=== PATIENT | male | born 1985 | race Two or more races ===

== ENCOUNTER → 2023-09-26 11:55 | Emergency (ER) | payer MEDICAID ==
[~2023-09-26] VITALS: Ht 160 cm; Wt 75.4 kg
[~2023-09-26 11:55] MED LIST: IBUP-1454 PO
[2023-09-26 15:11] VITALS: BP 134/83; PULSE 70; RESP 16; TEMP 97.9; O2SAT 96
== END | disposition home or self-care (01) ==
LOC: ER 11:55
DX: M54.2 Cervicalgia (principal); V49.9XXA Car occupant (driver) (passenger) injured in unspecified traffic accident, initial encounter; Y93.89 Activity, other specified; Y92.488 Other paved roadways as the place of occurrence of the external cause; Y99.8 Other external cause status
CPT/HCPCS: 72040

== ENCOUNTER 2024-10-27 14:14 | Emergency (ER) | payer MEDICAID ==
[~2024-10-27] VITALS: Ht 162.6 cm; Wt 72.4 kg
--- NOTE | 2024-10-27 16:17 | ED.PDOC ---
Musculoskeletal HPI Comments A 39 year-old male presents to the ED with a chief complaint of lower extremity to the right foot great toenail as of X2 weeks ago. Patient reports having an ingrown toe nail that needs care. Patient has no further complaints at this time and otherwise denies fever, chills, foot pain, swelling, or bleeding at the site. 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 Information Source: Patient Mode of Arrival: Ambulatory Location: Right Extremity Location: Great Toe Timing: Weeks Prehospital treatment: None Severity: Moderate Able to Move Extremity: Yes Bear Weight: Limited Pain: Moderate Associated signs and symptoms: Other (Right Great Toe ) Past Medical History PAST MEDICAL HISTORY: Denies Surgical History: Denies all surgeries Family History Family History: Reviewed,noncontributory to illness, No family hx of Cancer, No family hx of DM, No family hx of Heart nina, No family hx of HTN, No family hx ofKidney nina, No family hx of Liver nina, No family hx of Lung nina, No family hx of Stroke Social History Smoker: Non-Smoker Alcohol: Denies ETOH Use Drugs: Denies Drug Use Lives In: Home Constitutional: denies: chills, diaphoresis, fatigue, fever, malaise, sweats, weakness, others EENTM: denies: blurred vision, double vision, ear bleeding, ear discharge, ear drainage, ear pain, ear ringing, eye pain, eye redness, hearing loss, mouth pain, mouth swelling, nasal discharge, nose bleeding, nose congestion, nose pain, photophobia, tearing, throat pain, throat swelling, voice changes, others Respiratory: denies: cough, hemoptysis, orthopnea, SOB at rest, shortness of breath, SOB with excertion, stridor, wheezing, others Cardiovascular: denies: chest pain, dizzy spells, diaphoresis, Dyspnea on exertion, edema, irregular heart beat, left arm pain, lightheadedness, palpitations, PND, syncope, others Gastrointestinal: denies: abdomen distended, abdominal pain, blood streaked bowels, constipated, diarrhea, dysphagia, difficulty swallowing, hematemesis, melena, nausea, poor appetite, poor fluid intake, rectal bleeding, rectal pain, vomiting, others Genitourinary: denies: burning, dysuria, flank pain, frequency, hematuria, incontinence, penile discharge, penile sore, pain, testicle pain, testicle swelling, urgency, others Neurological: denies: dizziness, fainting, headache, left sided numbness, left sided weakness, numbness, paresthesia, pre-existing deficit, right sided numbness, right sided weakness, seizure, speech problems, tingling, tremors, weakness, others Musculoskeletal: denies: back pain, gout, joint pain, joint swelling, muscle pain, muscle stiffness, neck pain, others Integumetry: reports: others (Ingrown Toenail of Right Great Toe ); denies: bruises, change in color, change in hair/nails, dryness, laceration, lesions, lumps, rash, wounds Allergic/Immunocompromised: denies: Difficulty Healing, Frequent Infections, Hives, Itching, others Hematologic/Lymphatic: denies: anemia, blood clots, easy bleeding, easy bruising, swollen glands, others Endocrine: denies: excessive hunger, excessive sweating, excessive thirst, excessive urination, flushing, intolerance to cold, intolerance to heat, unexplained weight gain, unexplained weight loss, others Psychiatric: denies: anxiety, bipolar disorder, depression, hopeless, panic disorder, schizophrenia, sleepless, suicidal, others All Other Systems: Reviewed and Negative Physical Exam General Appearance: Mild Distress, No Apparent Distress, Normal HEENT: Normal ENT Inspection, PERRL/EOMI, Pharynx Normal, TMs Normal Neck: Full Range of Motion, Non-Tender, Normal, Normal Inspection Respiratory: Chest Non-Tender, Lungs Clear, No Accessory Muscle Use, No Respiratory Distress, Normal Breath Sounds Cardiovascular: No Edema, No JVD, No Murmur, No Gallop, Normal Peripheral Pulses, Regular Rate/Rhythm Breast Exam: Deferred Gastrointestinal: No Organomegaly, Non Tender, No Pulsatile Mass, Normal Bowel Sounds, Soft Genitalia: Deferred Pelvic: Deferred Rectal: Deferred Extremities: No calf tenderness, Normal capillary refill, Normal inspection, Normal range of motion, Non-tender, No pedal edema Musculoskeletal : Location: Right Extremity Location: Great Toe Apperance: Swelling, Limited ROM, Tenderness: Moderate, Other (Infected ingrown toenail) Neurologic: Alert, 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 Was a procedure done?: Yes Sedation Sedation?: No Nail Removal Nail Removal Location: 1st Toe nail Nail Removal Anesthetic: Lidocaine Wound Complexity: Partial Informed Consent: Yes Other Procedure Informed consent obtained: Yes Risks, benefits, and alternati: Yes Differential Diagnosis EXT Differential Diagnosis: Cellulitis, Laceration, Other (Ingrown Toenail ) X-Ray, Labs, Meds, VS Vital Signs Date Time Temp Pulse Resp B/P (MAP) Pulse Ox O2 Delivery O2 Flow Rate FiO2 10/27/24 14:23 98.4 86 18 130/84 (99) 98 98.4 X-Ray, Labs, Meds, VS Comment Patient came in to the emergency department with infected ingrown toenail Procedure done to remove the nail and cleaned up nailbed and the infection The toenail is cleaned up Neosporin applied to gauze is done Patient will follow up with his regular doctor or come back to the ER in three days 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 Time of 1ST Reevaluation: 17:25 Reevaluation 1ST: Improved Time of 2ND Reevaluation: 17:54 Reevaluation 2ND: Improved Consultation: PCP Patient Education/Counseling: Diagnosis, Treatment, Prognosis, Need For Follow Up Family Education/Counseling: Diagnosis, Treatment, Prognosis, Need For Follow Up, No Family Present Medical Screening: No EMC Exist At This Time Departure 1 Departure Time of Disposition: 17:40 Impression: Primary Impression: Ingrown nail of great toe of right foot Disposition: 01 HOME / SELF CARE / HOMELESS Condition: Stable Additional Instructions: The toenail clean and dry follow up your doctor in three days or come to the emergency department for 1st evaluation e-Prescriptions Naproxen (Naproxen) 375 Mg Tab 375 MG PO TID for 10 Days, #30 TAB Prov: BONY HERNANDEZ MD 10/27/24 Cefdinir (Cefdinir) 300 Mg Cap 300 MG PO BID for 7 Days, #14 CAP Prov: BONY HERNANDEZ MD 10/27/24 Discharged With: Self Critical Care Note Critical Care Time?: No Stability Stability form required: No Heart Score Heart Score: Heart Score Response (Comments) Value History N/A 0 EKG N/A 0 Age <45 0 Risk Factors No known risk factors 0 Troponin N/A 0 Total 0 I personally scribed for BONY HERNANDEZ MD ([email or web address]) on 10/27/24 at 16:17. Electronically submitted by Karo Mcdaniel ([employer]). I personally scribed for BONY HERNANDEZ MD ([email or web address]) on 10/27/24 at 16:20. Electronically submitted by Karo Mcdaniel ([employer]). I personally scribed for BONY HERNANDEZ MD ([email or web address]) on 10/27/24 at 16:21. Electronically submitted by Karo Mcdaniel ([employer]). I personally scribed for BONY HERNANDEZ MD ([email or web address]) on 10/27/24 at 17:19. Electronically submitted by Karo Mcdaniel ([employer]). I personally scribed for BONY HERNANDEZ MD ([email or web address]) on 10/27/24 at 17:26. Electronically submitted by Karo Mcdaniel ([employer]). BONY HERNANDEZ MD Oct 27, 2024 16:17
[2024-10-27] MEDS: LIDOCAINE 2%HCL (LOCAL ANESTH.) INJ 20ML MDV ID ONE (17:33)
[2024-10-27] MEDS ORDERED: CEFD300C2 PO (17:56)
[2024-10-27] MEDS ORDERED: NAPR-957 PO (17:56)
[2024-10-27] MEDS: BACITRACIN TOP OINT 1 UD PKG TOP ONE (18:01)
[2024-10-27 19:22] VITALS: BP 124/90; PULSE 65; RESP 18; TEMP 98; O2SAT 97
== END 2024-10-27 19:25 | disposition home or self-care (01) ==
LOC: ER 14:14
DX: L60.0 Ingrowing nail (principal)
CPT/HCPCS: 11730

== ENCOUNTER 2024-10-30 08:23 | Emergency (ER) | payer MEDICAID ==
[~2024-10-30] VITALS: Ht 162.6 cm; Wt 73.6 kg
[~2024-10-30 08:23] MED LIST changes: +CEFD300C2 PO; +NAPR-957 PO
--- NOTE | 2024-10-30 08:59 | ED.PDOC ---
History of Present Illness HPI Comments 39 year old male presents to the ED for the c/c of a Wound Check to the Right Big Toe. Pt states that he was previously seen here at [facility] this past Tuesday for a toe nail removal, and was advised to return for a further evaluation. Wound is noted to have No gross abnormality, No surrounding erythema or swell ing, No Drainage noted, Nuero vascular sensitivity intact. Pt notes of Tenderness upon Palpitation. Denies any Fevers, Discharge, and is able to ambulate without any assisted devices. Chief Complaint: Wound Check Time Seen by MD: 08:51 Primary Care Provider: NONE Reviewed Notes: Nurses Notes, Medications, Allergies Allergies: Coded Allergies: NO KNOWN ALLERGIES (Unverified , 09/26/23) Home Meds Active Scripts Naproxen (Naproxen) 375 Mg Tab, 375 MG PO TID for 10 Days, #30 TAB Prov:BONY HERNANDEZ MD 10/27/24 Cefdinir (Cefdinir) 300 Mg Cap, 300 MG PO BID for 7 Days, #14 CAP Prov:BONY HERNANDEZ MD 10/27/24 Ibuprofen (Ibuprofen) 600 Mg Tab, 1 TAB PO TIDPRN PRN for 10 Days, #30 TAB 0 Refills Prov:EVELYN LINO NP 09/26/23 Information Source: Patient Mode of Arrival: Ambulatory Severity: Mild Timing: Days Duration: Since onset, Days Prehospital treatment: None Past Medical History PAST MEDICAL HISTORY: Denies Surgical History: Denies all surgeries Family History Family History: Reviewed,noncontributory to illness, No family hx of Cancer, No family hx of DM, No family hx of Heart nina, No family hx of HTN, No family hx o fKidney nina, No family hx of Liver nina, No family hx of Lung nina, No family hx of Stroke Social History Smoker: Non-Smoker Alcohol: Denies ETOH Use Drugs: Denies Drug Use Lives In: Home Constitutional: denies: chills, diaphoresis, fatigue, fever, malaise, sweats, weakness, others EENTM: denies: blurred vision, double vision, ear bleeding, ear discharge, ear drainage, ear pain, ear ringing, eye pain, eye redness, hearing loss, mouth pain, mouth swelling, nasal discharge, nose bleeding, nose congestion, nose pain, photophobia, tearing, throat pain, throat swelling, voice changes, others Respiratory: denies: cough, hemoptysis, orthopnea, SOB at rest, shortness of breath, SOB with excertion, stridor, wheezing, others Cardiovascular: denies: chest pain, dizzy spells, diaphoresis, Dyspnea on exertion, edema, irregular heart beat, left arm pain, lightheadedness, palpitations, PND, syncope, others Gastrointestinal: denies: abdomen distended, abdominal pain, blood streaked bowels, constipated, diarrhea, dysphagia, difficulty swallowing, hematemesis, melena, nausea, poor appetite, poor fluid intake, rectal bleeding, rectal pain, vomiting, others Genitourinary: denies: burning, dysuria, flank pain, frequency, hematuria, incontinence, penile discharge, penile sore, pain, testicle pain, testicle swelling, urgency, others Neurological: denies: dizziness, fainting, headache, left sided numbness, left sided weakness, numbness, paresthesia, pre-existing deficit, right sided numbness, right sided weakness, seizure, speech problems, tingling, tremors, weakness, others Musculoskeletal: reports: others (Right Big Toe Pain); denies: back pain, gout, joint pain, joint swelling, muscle pain, muscle stiffness, neck pain Integumetry: denies: bruises, change in color, change in hair/nails, dryness, laceration, lesions, lumps, rash, wounds, others Allergic/Immunocompromised: denies: Difficulty Healing, Frequent Infections, Hives, Itching, others Hematologic/Lymphatic: denies: anemia, blood clots, easy bleeding, easy bruising, swollen glands, others Endocrine: denies: excessive hunger, excessive sweating, excessive thirst, excessive urination, flushing, intolerance to cold, intolerance to heat, unexplained weight gain, unexplained weight loss, others Psychiatric: denies: anxiety, bipolar disorder, depression, hopeless, panic disorder, schizophrenia, sleepless, suicidal, others All Other Systems: Reviewed and Negative Physical Exam General Appearance: No Apparent Distress, Normal HEENT: Normal ENT Inspection, Pharynx Normal, TMs Normal Neck: Full Range of Motion, Non-Tender, Normal, Normal Inspection Respiratory: Chest Non-Tender, Lungs Clear, No Accessory Muscle Use, No Respiratory Distress, Normal Breath Sounds Cardiovascular: No Edema, No JVD, No Murmur, No Gallop, Normal Peripheral Pulses, Regular Rate/Rhythm Breast Exam: Deferred Gastrointestinal: No Organomegaly, Non Tender, No Pulsatile Mass, Normal Bowel Sounds, Soft Genitalia: Deferred Pelvic: Deferred Rectal: Deferred Extremities: No calf tenderness, Normal capillary refill, Normal inspection, Normal range of motion, Non-tender, No pedal edema Musculoskeletal : Location: Right Extremity Location: Great Toe (No gross abnormality, TTP, No surrouding erythema or swelling, No Drainage noted, Neurovascular sensitivity intact, Wound healing properly) Apperance: Normal Neurologic: Alert, No Motor Deficits, Normal Affect, Normal Mood, No Sensory Deficits Cerebellar Function: Normal Reflexes: Normal Skin: Dry, Normal Color, Warm Lymphatic: No Adenopathy Was a procedure done? Was a procedure done?: No Differential Dx Considerations may include: wound check X-Ray, Labs, Meds, VS Vital Signs Date Time Temp Pulse Resp B/P (MAP) Pulse Ox O2 Delivery O2 Flow Rate FiO2 10/30/24 08:36 98.3 78 16 136/81 (99) 97 98.3 X-Ray, Labs, Meds, VS Comment 39 year old male presents to the ED for the c/c of a Wound Check to the Right Big Toe. Patient arrives alert and oriented, ABC's intact, afebrile, vital signs stable, saturating well in room air Patient was rechecked for wound check. Examination shows no evidence of cellulitis, lymphangitis, systemic infection or any other process requiring immediate medical or surgical intervention at this time. Patient is stable for discharge at this time. External notes reviewed. Test results and diagnostic imaging interpreted. All diagnostic findings, discharge care, education and instructions provided Follow-up with PCP in 2 to 3 days Patient verbalized understanding and agreed to treatment plan Vital signs stable, afebrile, no acute distress noted Patient ambulatory with strong steady gait Advised to return precautions for any new or worsening symptoms, return to ER immediately for re-evaluation Patient is aware that the purpose of this visit was for an acute medical emergency requiring emergent stabilization. Chronic conditions, including malignancies have not been ruled out. Patient is instructed to follow up with PCP as directed and discharge instructions for continued care and workup. If unable to arrange follow-up, patient is to return to the emergency department for reassessment. Patient (parent or legal guardian if applicable) was given verbal and written discharge instructions and acknowledges understanding. Additional MDM Review of External, Non-ED records: External records reviewed. Discussion with independent historian (EMS, family) history obtained from the patient/parents (if applicable) at bedside Chronic conditions affecting care: None Social determinants of health affecting care: None Time of 1ST Reevaluation: 09:21 Reevaluation 1ST: Unchanged Patient Education/Counseling: Diagnosis, Treatment Family Education/Counseling: No Family Present SEPSIS Sepsis Screen Date sepsis recognized/suspect: Oct 30, 2024 Time Sepsis recognized/suspect: 08 Recent Procedure: No On Antibiotic Therapy: No Respiratory Rate >20: No Heart Rate >90: No Temp<36 C (96.8 F) or >38.3 C: No SBP <90 or MAP <65 mmHG: No New Acute Mental Status Change: No Is the patient on CPAP, BIPAP,: No Vital Signs Date Time Temp Pulse Resp B/P (MAP) Pulse Ox O2 Delivery O2 Flow Rate FiO2 10/30/24 08:36 98.3 78 16 136/81 (99) 97 98.3 Departure 1 Departure Time of Disposition: 09:15 Impression: Primary Impression: Visit for wound check Disposition: 01 HOME / SELF CARE / HOMELESS Condition: Stable Discharged With: Self Critical Care Note Critical Care Time?: No Stability Stability form required: No Heart Score Heart Score: Heart Score Response (Comments) Value History N/A 0 EKG N/A 0 Age N/A 0 Risk Factors N/A 0 Troponin N/A 0 Total 0 I personally scribed for EVELYN LINO NP ([email or web address]) on 10/30/24 at 08:59. Electronically submitted by Ben Parker ([email or web address]). EVELYN LINO NP Oct 30, 2024 08:59
[2024-10-30 09:25] VITALS: BP 113/79; PULSE 79; RESP 16; TEMP 98.7; O2SAT 99
== END 2024-10-30 09:29 | disposition home or self-care (01) ==
LOC: ER 08:23
DX: Z48.00 Encounter for change or removal of nonsurgical wound dressing (principal); Z79.1 Long term (current) use of non-steroidal anti-inflammatories (NSAID); Z79.899 Other long term (current) drug therapy